=== PATIENT | female | born 1945 ===

== ENCOUNTER 2018-01-14 20:03 | Emergency (ER) | payer MEDICARE, BC ==
[2018-01-14] MEDS ORDERED: Sodium Chloride 0.9% 1,000 ML IV ONE ×3 (20:39→22:31)
--- NOTE | 2018-01-14 20:39 | C.PDOC ---
History Of Present Illness 72 year old female presents to the emergency department with complaints of nausea, vomiting, and diarrhea since yesterday after eating rice. Patient qualifies the pain as 5/10 in severity and states having greater than 10 episodes of diarrhea. Time Seen by Provider: 01/14/18 20:38 Chief Complaint (Nursing): Abdominal Pain History Per: Patient History/Exam Limitations: no limitations Onset/Duration Of Symptoms: Days (1) Current Symptoms Are (Timing): Still Present Context: Food Severity: Moderate Pain Scale Rating Of: 4 Location Of Pain/Discomfort: Epigastric Radiation Of Pain To:: None Quality Of Discomfort: Dull, Aching, Cramping Associated Symptoms: Nausea, Vomiting, Diarrhea Alleviating Factors: None Last Bowel Movement: Today Recent travel outside of the [place]: No Additional History Per: Family Abnormal Vaginal Bleeding: No Past Medical History Reviewed: Historical Data, Nursing Documentation, Vital Signs Vital Signs: Last Vital Signs Temp 98.3 F 01/14/18 22:48 Pulse 75 01/14/18 22:48 Resp 16 01/14/18 22:48 BP 114/51 L 01/14/18 22:48 Pulse Ox 97 01/14/18 22:48 - Medical History PMH: HTN, Hypercholesterolemia Surgical History: No Surg Hx Family History: States: No Known Family Hx - Social History Hx Alcohol Use: No Hx Substance Use: No Review Of Systems Constitutional: Negative for: Fever, Chills Cardiovascular: Negative for: Chest Pain Respiratory: Negative for: Shortness of Breath Gastrointestinal: Positive for: Nausea, Vomiting, Abdominal Pain, Diarrhea Genitourinary: Negative for: Dysuria Musculoskeletal: Negative for: Back Pain Skin: Negative for: Rash Neurological: Negative for: Weakness Psych: Negative for: Anxiety Physical Exam - Physical Exam Appears: Non-toxic, No Acute Distress Skin: Warm, Dry Head: Normacephalic Eye(s): bilateral: Normal Inspection, PERRL, EOMI Oral Mucosa: Moist Neck: Trachea Midline, Supple Chest: Symmetrical Cardiovascular: Rhythm Regular, No Murmur Respiratory: No Rales, No Rhonchi, No Wheezing Gastrointestinal/Abdominal: Soft, Tenderness (diffusely tender), Distention, No Guarding, No Rebound, Other (obese, tympanic to percussion) Back: Normal Inspection Extremity: Normal ROM Extremity: Bilateral: Atraumatic Neurological/Psych: Oriented x3 Gait: Steady ED Course And Treatment - Laboratory Results Result Diagrams: 01/14/18 20:48 01/14/18 20:48 ECG: Interpreted By Me, Viewed By Me ECG Rhythm: Sinus Rhythm (97), Nonspecific Changes (left post fascicular block) O2 Sat by Pulse Oximetry: 99 (RA) Pulse Ox Interpretation: Normal Progress Note: Plan: EKG. CMP. Lipase. CBC. PTT. Prothrombin Time. Protonix 40mg IVP. NaCl IV Fluids. Zofran 4mg IVP. Urinalysis Reevaluation Time: 00:37 Reassessment Condition: Improved Medical Decision Making Medical Decision Making: Upon provider reevaluation patient is feeling better, is medically stable, and requires no further treatment in the ED at this time. Patient will be discharged home with Rx for flagyl, zofran . Counseling was provided and all questions were answered regarding diagnosis and need for follow up with dr berg. There is agreement to discharge plan. Return if symptoms persist or worsen. Disposition Counseled Patient/Family Regarding: Studies Performed, Diagnosis, Need For Followup, Rx Given - Disposition Referrals: Peewee Berg [Staff Provider] - Disposition: HOME/ ROUTINE Disposition Time: 20:38 Condition: FAIR Additional Instructions: Please return if symptoms recur Prescriptions: Metronidazole [Flagyl] 500 mg PO TID #21 tablet Ondansetron ODT [Zofran ODT] 1 odt PO BID PRN #10 odt PRN Reason: Nausea/Vomiting Instructions: Acute Abdomen (Belly Pain), Adult (DC), Nausea and Vomiting, Adult (DC), Diverticulosis (DC) Forms: [employer] (Georgian) Print Language: CAP[place] VERDEAN - Clinical Impression Clinical Impression: Abdominal pain, Nausea, Vomiting, Diarrhea, Diverticulosis - Scribe Statement The provider has reviewed the documentation as recorded by the Scribe (Mike Trenton) Provider Attestation: All medical record entries made by the Scribe were at my direction and personally dictated by me. I have reviewed the chart and agree that the record accurately reflects my personal performance of the history, physical exam, medical decision making, and the department course for this patient. I have also personally directed, reviewed, and agree with the discharge instructions and disposition.
[2018-01-14 20:56] LABS: BASO # 0.1 K/uL (0.0-0.2); BASO % 0.4 % (0.0-2.0); EOS # 0.1 K/uL (0.0-0.7); EOS % 0.3 % (0.0-4.0); HEMOGLOBIN 13.4 g/dL (11.0-16.0); LYMPH # 2.5 K/uL (1.0-4.3); LYMPH % 11.2 % (20.0-40.0); MEAN CELL VOLUME 93.9 fL (81.0-99.0); MEAN CORPUSCULAR HEMOGLOBIN 31.9 pg (27.0-31.0); MEAN CORPUSCULAR HGB CONC 33.9 g/dL (33.0-37.0); MEAN PLATELET VOLUME 9.4 fL (7.2-11.7); MONO # 1.3 K/uL (0.0-0.8); MONO % 5.7 % (0.0-10.0); NEUT # 18.3 K/uL (1.8-7.0); NEUT % 82.4 % (50.0-75.0); RBC 4.21 Mil/uL (3.80-5.20); RED CELL DISTRIBUTION WIDTH 13.4 % (11.5-14.5)
[2018-01-14 20:58] LABS: WHITE BLOOD COUNT 22.2 K/uL (4.8-10.8)
[2018-01-14 21:15] LABS: ALB/GLOB RATIO 1.5 (1.0-2.1); ALBUMIN 4.8 g/dL (3.5-5.0); CALCIUM 9.9 mg/dl (8.6-10.4)
[2018-01-14 21:22] LABS: PROTHROMBIN TIME 10.6 SECONDS (9.7-12.2)
[2018-01-14] MEDS ORDERED: metroNIDAZOLE IV 500 mg/100 ml 500 MG/100 ML BAG ONE (22:29)
[2018-01-14] MEDS ORDERED: metroNIDAZOLE IV 500 mg/100 ml 500 MG/100 ML BAG IVPB SCH (22:30)
[2018-01-14] MEDS ORDERED: Iodixanol 320 MG/ML 100 ML BOTTLE IV ONE (22:37)
[2018-01-14 22:49] VITALS: PULSE 75; RESP 16
[2018-01-14] MEDS ORDERED: metroNIDAZOLE IV 500 mg/100 ml 500 MG/100 ML BAG IVPB STA ×2 (22:53→23:14)
[2018-01-14 23:23] LABS: VENOUS BLOOD GAS BASE EXCESS -5.2 mmol/L (0.0-2.0); VENOUS BLOOD GAS PCO2 37 mmHg (40-60); VENOUS BLOOD GAS PO2 50 mm/Hg (30-55); VENOUS BLOOD PH 7.34 (7.32-7.43)
[2018-01-15 00:58] VITALS: BP 120/71; TEMP 98.8; O2SAT 95
--- NOTE | 2018-01-15 10:46 | CT ---
Date of service: 01/14/2018 PROCEDURE: CT Abdomen and Pelvis with contrast HISTORY: abd pain COMPARISON: None. TECHNIQUE: Contrast dose: 100 mL Visipaque 320 Radiation dose: Total exam DLP = 1142.5 mGy-cm. This CT exam was performed using one or more of the following dose reduction techniques: Automated exposure control, adjustment of the mA and/or kV according to patient size, and/or use of iterative reconstruction technique. FINDINGS: LOWER THORAX: Unremarkable. LIVER: Unremarkable. No gross lesion or ductal dilatation. GALLBLADDER AND BILE DUCTS: Prior cholecystectomy. PANCREAS: Unremarkable. No gross lesion or ductal dilatation. SPLEEN: Unremarkable. ADRENALS: Unremarkable. No mass. KIDNEYS AND URETERS: 2.1 cm left midpole cyst. 3.5 cm left lower pole cyst. No hydronephrosis. No solid mass. VASCULATURE: Unremarkable. No aortic aneurysm. BOWEL: Colonic diverticulosis. 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 No obstruction. No gross mural thickening. APPENDIX: No findings to suggest acute appendicitis. PERITONEUM: Unremarkable. No free fluid. No free air. LYMPH NODES: Unremarkable. No enlarged lymph nodes. BLADDER: Unremarkable. REPRODUCTIVE: Unremarkable. BONES: No acute fracture. Multilevel spinal degenerative changes. Grade 1 anterolisthesis of L4 on L5. OTHER FINDINGS: None. IMPRESSION: No acute abdominal pelvic pathology. Additional findings as above.
--- NOTE | 2018-01-16 08:54 | CARD ---
APPROVED REPORT Date of service: 01/14/2018 EKG Measurement Heart [id number] 116P-3 [id number] <Conclusion> Normal sinus rhythm Left posterior fascicular block Inferior infarct, age undetermined Abnormal ECG
== END 2018-01-15 00:58 | disposition home or self-care (01) ==
LOC: C.ER 20:03
DX: K57.90 Diverticulosis of intestine, part unspecified, without perforation or abscess without bleeding (principal); R10.13 Epigastric pain; R11.2 Nausea with vomiting, unspecified; R19.7 Diarrhea, unspecified
CPT/HCPCS: 74177; 80053; 82803; 83690; 85025; 85610; 85730; 93005; 96365; 96375; 99284; C9113; J2405; J7030; Q9967